=== PATIENT | female | born 1975 | race African-American/Black ===

== ENCOUNTER 2017-10-13 15:14 | Outpatient (CLI) | payer BC | END 2017-10-13 15:15 | disposition home or self-care (01) | LOC: BICMAMMO 15:14 | PROVIDERS: ATTEND Nurse Practitioner Family | DX: Z12.31 Encounter for screening mammogram for malignant neoplasm of breast (principal); N63.10 Unspecified lump in the right breast, unspecified quadrant; N63.20 Unspecified lump in the left breast, unspecified quadrant | CPT/HCPCS: 77063; 77067 ==

== ENCOUNTER 2018-01-04 15:18 | Emergency (ER) | payer BC ==
[2018-01-04 16:22] LABS: #Basophils 0.1 thou/uL (0.0-0.2); #Eosinphils 0.1 thou/uL (0.0-0.7); #Lymphocytes 2.2 thou/uL (1.20-3.40); #Monocytes 0.3 thou/uL (0.11-0.59); #Neutrophils 3.4 thou/uL (1.40-6.50); %Eosinophils 2.1 % (0.0-10.0); %Monocytes 4.3 % (0.0-10.0); %Neutrophils 56.6 % (42.0-75.0); Hemoglobin 10.1 g/dL (12.0-16.0); Mean Corpuscular HGB CONC 31.7 g/dL (32.0-36.0); Mean Corpuscular Hemoglobin 24.6 pg (27.0-31.0); Mean Corpuscular Volume 77.6 fL (78.0-98.0); Mean Platelet Volume 8.2 fL (7.4-10.4); Platelet Count 406 thou/uL (130-400); RBC Distribution Width 15.7 % (11.5-14.5); Red Blood Cell (RBC) Count 4.13 mill/uL (4.20-5.40)
[2018-01-04 16:43] LABS: ALT (SGPT) 13 U/L (8-55); AST (SGOT) 18 U/L (5-34); Albumin 4.1 g/dL (3.5-5.0); Alkaline Phosphatase 91 U/L (40-150); Anion Gap 15 mmol/L (10-20); BUN (Urea Nitrogen) 12 mg/dL (7.0-18.7); Bilirubin, Total 0.4 mg/dL (0.2-1.2); Calc. Creatinine Clearance 0 mL/min (70-130); Calcium 8.9 mg/dL (7.8-10.44); Carbon Dioxide 21 mmol/L (22-29); Chloride 106 mmol/L (98-107); Estimated GFR-MDRD Greater than 90; Glucose 91 mg/dL (70-105); Potassium 3.3 mmol/L (3.5-5.1); Protein, Total 8.1 g/dL (6.0-8.3); Sodium 139 mmol/L (136-145)
[2018-01-04 16:48] LABS: CKMB 2.1 ng/mL (0-6.6); Troponin I Less than 0.010 ng/mL (< 0.028)
--- NOTE | 2018-01-04 17:04 | CT ---
NONCONTRAST CT HEAD: Date: 01/04/18 HISTORY: Syncope and collapse. Headache. COMPARISON: None available. FINDINGS: There is no evidence of a hemorrhage, acute infarction, mass effect, or midline shift. Ventricular sy stem is normal in size, shape, and position. Visualized paranasal sinuses and mastoid air cells are c lear. No depressed calvarial fracture is seen. IMPRESSION: No acute intracranial abnormality is demonstrated. POS: [facility]
[2018-01-04 18:08] LABS: Bilirubin Negative (Negative); Blood, Urine Negative (Negative); Clarity CLEAR (Clear); Glucose, Urine (Dipstick) Negative (Negative); Leukocyte Trace (Negative); Nitrite Negative (Negative); Protein, Urine (Dipstick) Negative (Neg-Trace); Specific Gravity, Urine 1.009 (1.002-1.036); Urobilinogen 0.2 mg/dL (0.2-1.0); pH, Urine 6.5 (5.0-9.0)
[2018-01-04 18:09] LABS: Pregnancy Test - Urine (BHCG) Negative (Negative); Pregu Control Background? CLEAR/WHITE (CLR/WHITE); Pregu Control Bar Appear? YES (CONTROL BAR); Specific Gravity 1.009 (1.002-1.036)
[2018-01-04 18:11] LABS: Bacteria/HPF None Seen HPF (None Seen); Hyaline Casts/LPF 0-3 HYALINE CAST LPF (0-3 Hyaline); RBC/HPF 0-3 HPF (0-3); Squamous Epithelial 0-3 HPF (0-3); WBC/HPF 0-3 HPF (0-3)
--- NOTE | 2018-01-04 18:36 | RAD ---
AP VIEW CHEST: 01/04/2018 HISTORY: Chest pain. TECHNIQUE: AP view chest is obtained. FINDINGS: AP view chest demonstrates ectasia of the aorta. Pulmonary vascular congestion is seen. No evidence of effusions, pneumonia, or pneumothorax is seen. IMPRESSION: Pulmonary vascular congestion; otherwise, unremarkable anterior-posterior view chest. POS: [facility]
[2018-01-04] MEDS ORDERED: Aspirin 81 mg Enteric Coated Tablet ONE (18:39)
[2018-01-04] MEDS ORDERED: hydrALAZINE 20 MG/ML VIAL ONE (18:39)
== END 2018-01-04 20:35 | disposition home or self-care (01) ==
LOC: ERS 15:18
DX: R55 Syncope and collapse (principal); I10 Essential (primary) hypertension; Z79.899 Other long term (current) drug therapy
CPT/HCPCS: 36415; 70450; 71045; 80053; 81003; 81015; 81025; 82553; 84484; 85025; 93005; 96374; J0360

== ENCOUNTER 2018-08-09 08:39 | Emergency (ER) | payer BC | END 2018-08-09 09:38 | disposition home or self-care (01) | LOC: ERS 08:39 | DX: S39.012A Strain of muscle, fascia and tendon of lower back, initial encounter (principal); I10 Essential (primary) hypertension; Z79.899 Other long term (current) drug therapy; X50.1XXA Overexertion from prolonged static or awkward postures, initial encounter | CPT/HCPCS: 99283 ==

== ENCOUNTER 2018-12-27 10:42 | Emergency (ER) | payer BC | END 2018-12-27 13:33 | disposition left against medical advice (07) | LOC: ERS 10:42 | DX: Z53.21 Procedure and treatment not carried out due to patient leaving prior to being seen by health care provider (principal) ==

== ENCOUNTER 2019-07-26 08:53 | Outpatient (CLI) | payer BC ==
--- NOTE | 2019-07-26 11:54 | ULT ---
RIGHT BREAST ULTRASOUND: Date: 07/26/2019 HISTORY: Palpable abnormality right breast. COMPARISON: Today's mammogram, as well as previous mammogram studies of 10/13/2017 and 02/19/2012. FINDINGS: Real-time imaging of the area of concern shows a kidney mcfadden shaped nodule with central fatty hilum, very characteristic for an intramammary lode. This is located at the 10 o'clock position, 7.0 cm from the nipple. This corresponds to the mammographic finding and this is a stable mammographic finding. No other abnormalities noted in this area. IMPRESSION: BI-RADS Category 2 - Benign findings.
--- NOTE | 2019-07-26 12:23 | MMO ---
Bilateral MAMMO Bilat Diag [facility]. CLINICAL HISTORY: Patient is 44 years old and is seen for diagnostic exam and lump or thickening in the upper-outer region of the right breast. The patient has the following family history of breast cancer: maternal aunt, malignant (generic). The patient has no personal history of cancer. The patient has a history of left Excisional Biopsy at age 17 - benign - Lump removed. VIEWS: The views performed were: bilateral mediolateral with tomosynthesis; bilateral craniocaudal with tomosynthesis; bilateral mediolateral oblique with tomosynthesis; and left craniocaudal. FILMS COMPARED: The present examination has been compared to prior imaging studies performed at [facility] on 02/19/2012, 10/13/2017 and 07/26/2019. This study has been interpreted with the assistance of computer-aided detection. MAMMOGRAM FINDINGS: There are scattered fibroglandular densities. There are intramammary lymph nodes seen in both breasts. There are no suspicious masses, suspicious calcifications, or new areas of architectural distortion. IMPRESSION: THERE IS NO MAMMOGRAPHIC EVIDENCE OF MALIGNANCY. A ROUTINE FOLLOW-UP MAMMOGRAM IN 1 YEAR IS RECOMMENDED. THE RESULTS OF THIS EXAM WERE SENT TO THE PATIENT. ACR BI-RADS Category 2 - Benign finding MAMMOGRAPHY NOTE: 1. A negative mammogram report should not delay a biopsy if a dominant of clinically suspicious mass is present. 2. Approximately 10% to 15% of breast cancers are not detected by mammography. 3. Adenosis and dense breasts may obscure an underlying neoplasm. Reported by: VELVET PATEL MD Electonically Signed: [id number]
== END 2019-07-26 08:54 | disposition home or self-care (01) ==
LOC: BICMAMMO 08:53
PROVIDERS: ATTEND Nurse Practitioner Family
DX: N63.11 Unspecified lump in the right breast, upper outer quadrant (principal)
CPT/HCPCS: 77066; G0279

== ENCOUNTER 2020-12-06 11:29 | Emergency (ER) | payer BC ==
[~2020-12-06 11:29] MED LIST: Iopamidol-370 76% 500 ML 1 ML ONE
[2020-12-06 12:20] LABS: Hemoglobin 13.5 g/dL (12.0-16.0); Mean Corpuscular HGB CONC 33.6 g/dL (32.0-36.0); Mean Corpuscular Volume 83.5 fL (78.0-98.0); Mean Platelet Volume 7.9 fL (7.4-10.4); Platelet Count 336 thou/uL (130-400); Red Blood Cell (RBC) Count 4.83 mill/uL (4.20-5.40); White Blood Cell (WBC) Count 5.5 thou/uL (4.8-10.8)
[2020-12-06 12:25] LABS: Band 14 % (5-11); Eosinophils 1 % (0-10); Lymphocytes 27 % (21-51); MDiff Complete? YES; Monocytes 6 % (0-10); Neutrophil 52 % (42-75); Platelet Morphology Comment Appears Adequate; RBC Morphology Normal
[2020-12-06 12:30] LABS: Anion Gap 14 mmol/L (10-20); BUN (Urea Nitrogen) 15 mg/dL (7.0-18.7); Bilirubin, Total 0.4 mg/dL (0.2-1.2); Calc. Creatinine Clearance 0 mL/min (70-130); Calcium 9.6 mg/dL (7.8-10.44); Carbon Dioxide 24 mmol/L (22-29); Chloride 103 mmol/L (98-107); Glucose 128 mg/dL (70-105); Potassium 3.5 mmol/L (3.5-5.1); Protein, Total 8.5 g/dL (6.0-8.3); Sodium 137 mmol/L (136-145)
[2020-12-06 12:31] LABS: ALT (SGPT) 14 U/L (8-55); AST (SGOT) 17 U/L (5-34); Albumin 4.1 g/dL (3.5-5.0); Alkaline Phosphatase 88 U/L (40-110); Globulin 4.4 g/dL (2.4-3.5); Lipase 16 U/L (8-78)
[2020-12-06 13:49] LABS: Bilirubin Negative (Negative); Blood, Urine Negative (Negative); Clarity Turbid (Clear); Glucose, Urine (Dipstick) Normal (Negative); Ketone, Urine Negative (Negative); Leukocyte Negative Leu/uL (Negative); Nitrite Negative (Negative); Protein, Urine (Dipstick) 50 mg/dL (Neg-Trace); Specific Gravity, Urine 1.016 (1.002-1.036); Urobilinogen Normal mg/dL (Less than 2)
[2020-12-06 13:55] LABS: RBC/HPF 0-3 HPF (0-3)
[2020-12-06 13:56] LABS: Bacteria/HPF 2+ HPF (None Seen); WBC/HPF 0-3 HPF (0-3)
[2020-12-06 15:32] LABS: BHCG - Serum Negative (NEGATIVE); Pregs Control Background? CLEAR/WHITE (CLR/WHITE); Pregs Control Bar Appear? YES (CONTROL BAR)
[2020-12-06] MEDS ORDERED: Ondansetron PF 4 MG/2 ML Vial ONE (16:11)
[2020-12-06] MEDS ORDERED: Losartan 25 MG TAB PO SCH (16:30)
== END 2020-12-06 20:25 | disposition home or self-care (01) ==
LOC: ERS 11:29
DX: K57.32 Diverticulitis of large intestine without perforation or abscess without bleeding (principal); I10 Essential (primary) hypertension; Z79.899 Other long term (current) drug therapy
CPT/HCPCS: 36415; 74177; 80053; 81003; 81015; 83690; 84703; 85025; 94760; 96372; 96374; J0500; J2405; Q9967

== ENCOUNTER 2024-11-25 09:57 | Inpatient (IN) | payer BC, OTHER, SELFPAY ==
[2024-11-25 10:21] LABS: #Basophils 0.03 10x3/uL (0.0-0.2); #Eosinophils 0.09 10x3/uL (0.0-0.7); #Monocytes 0.36 10x3/uL (0.11-0.59); #Neutrophils 2.65 10x3/uL (1.40-6.50); %Basophils 0.6 % (0.0-1.0); %Eosinophils 1.8 % (0.0-10.0); %Lymphocytes 37.1 % (21.0-51.0); %Monocytes 7.2 % (0.0-10.0); %Neutrophils 53.1 % (42.0-75.0); Hematocrit 37.7 % (36.0-47.0); Hemoglobin 12.5 g/dL (12.0-16.0); Mean Corpuscular Hemoglobin 27.7 pg (27.0-31.0); Mean Corpuscular Volume 83.6 fL (78.0-98.0); Platelet Count 246 10x3/uL (130-400); Red Blood Cell (RBC) Count 4.51 mill/uL (4.20-5.40); White Blood Cell (WBC) Count 4.99 10x3/uL (4.8-10.8)
[2024-11-25] MEDS ORDERED: niCARdipine 25 MG/10 ML SDV ONE (10:21)
[2024-11-25 10:36] LABS: INR-International Normal Ratio 1.1; PTT 27.0 sec (22.9-36.1); Prothrombin Time 14.2 sec (12.0-14.7)
[2024-11-25 10:43] LABS: Troponin I Less than 0.010 ng/mL (< 0.028)
[2024-11-25 10:45] LABS: Lipase 14 U/L (8-78)
[2024-11-25 10:48] LABS: Acetaminophen Less than 10 mcg/mL (Less than 10); Salicylate Less than 8.0 mg/dL (Less than 8.0)
[2024-11-25 10:51] LABS: ALT (SGPT) 9 U/L (Less than 34); AST (SGOT) 29 U/L (11-34); Albumin 3.7 g/dL (3.1-4.5); Alkaline Phosphatase 85 U/L (40-110); Anion Gap 13 mmol/L (10-20); BUN (Urea Nitrogen) 13 mg/dL (7.0-18.7); Bilirubin, Total 0.6 mg/dL (0.3-1.2); Calc. Creatinine Clearance 0 mL/min (70-130); Calcium 8.8 mg/dL (7.8-10.44); Carbon Dioxide 22 mmol/L (22-29); Chloride 108 mmol/L (98-107); Globulin 4.6 g/dL (2.4-3.5); Glucose 96 mg/dL (70-105); Potassium 3.8 mmol/L (3.5-5.1); Sodium 139 mmol/L (136-145)
[2024-11-25] MEDS ORDERED: Iopamidol-370 76% 500 ML MDV (1 ML CHARGE) ONE (12:17)
[2024-11-25] MEDS ORDERED: Ondansetron PF 4 MG/2 ML Vial IVP PRN (12:26)
[2024-11-25] MEDS ORDERED: niCARdipine 25 MG in Sodium Chloride 0.9% 250 ML 250 ML IVPB SCH (12:30)
[2024-11-25 13:34] LABS: Bacteria/HPF None Seen HPF (None Seen); CAUTI Indications for Culture Alt mental st,lethar; Glucose, Urine (Dipstick) Normal (Negative); Leukocyte Negative Leu/uL (Negative); Protein, Urine (Dipstick) Negative (Neg-Trace); RBC/HPF 0-3 HPF (0-3); Specific Gravity, Urine 1.027 (1.002-1.036); WBC/HPF 0-3 HPF (0-3)
[2024-11-25 13:36] LABS: Urine Culture Reflex No No
[2024-11-25 13:39] LABS: Cocaine Metabolite Screen Negative (Negative); THC/Cannabinoid Screen PRELIM POSITIVE (Negative); Tricyclic Screen Negative (Negative)
[2024-11-25 14:02] LABS: BHCG - Serum Negative (NEGATIVE); Pregs Control Background? CLEAR/WHITE (CLR/WHITE); Pregs Control Bar Appear? YES (CONTROL BAR)
[2024-11-25 15:10] LABS: Troponin I 0.025 ng/mL (< 0.028)
[2024-11-25] MEDS: Pantoprazole 40 MG VIAL IVP SCH (15:10)
[2024-11-25] MEDS: levETIRAcetam 500 MG (5 mL) VIAL SLOW IVP SCH ×2 (15:10→20:39)
[2024-11-25] MEDS: niCARdipine 25 MG in Sodium Chloride 0.9% 250 ML 250 ML IVPB SCH (15:51)
[2024-11-25] MEDS: Carvedilol 6.25 MG TAB PO SCH (15:52)
[2024-11-25 15:56] VITALS: BMI 39.4
[2024-11-25] MEDS ORDERED: Famotidine/PF 20 mg/2ml Vial SLOW IVP SCH (21:00)
[2024-11-25 21:28] LABS: Troponin I 0.050 ng/mL (< 0.028)
[2024-11-26] MEDS: Acetaminophen 325 MG TAB PO PRN (00:56)
[2024-11-26 05:49] LABS: ALT (SGPT) 9 U/L (Less than 34); AST (SGOT) 15 U/L (11-34); Albumin 3.6 g/dL (3.1-4.5); Alkaline Phosphatase 87 U/L (40-110); Anion Gap 13 mmol/L (10-20); BUN (Urea Nitrogen) 8 mg/dL (7.0-18.7); Bilirubin, Total 0.7 mg/dL (0.3-1.2); Calc. Creatinine Clearance 182 mL/min (70-130); Calcium 8.6 mg/dL (7.8-10.44); Carbon Dioxide 21 mmol/L (22-29); Cardiac Risk 4.1 (Less than 4.5); Chloride 105 mmol/L (98-107); Cholesterol 169 mg/dl (< 200 Desired); Globulin 4.5 g/dL (2.4-3.5); Glucose 100 mg/dL (70-105); HDL Cholesterol 41 mg/dL (>60 Neg Risk); LDL Cholesterol, Calculated 103 mg/dL; Potassium 2.9 mmol/L (3.5-5.1); Sodium 136 mmol/L (136-145); Triglycerides 123 mg/dL (Less than 150)
[2024-11-26] MEDS ORDERED: Potassium Chloride 20 MEQ in Premix 1 BAG IVPB SCH (08:00)
[2024-11-26 08:28] VITALS: BMI 39.4
[2024-11-26] MEDS: Carvedilol 6.25 MG TAB PO SCH (08:37)
[2024-11-26] MEDS: Pantoprazole 40 MG VIAL IVP SCH (08:51)
[2024-11-26] MEDS: hydrALAZINE 20 MG/ML VIAL SLOW IVP PRN (10:26)
[2024-11-26] MEDS: NIFEdipine XL 30 MG ER.TAB PO SCH (13:23)
[2024-11-27 05:41] LABS: Hematocrit 39.8 % (36.0-47.0); Hemoglobin 13.0 g/dL (12.0-16.0); Mean Corpuscular Hemoglobin 27.8 pg (27.0-31.0); Mean Corpuscular Volume 85.2 fL (78.0-98.0); Platelet Count 315 10x3/uL (130-400); Red Blood Cell (RBC) Count 4.67 mill/uL (4.20-5.40); White Blood Cell (WBC) Count 6.74 10x3/uL (4.8-10.8)
[2024-11-27 05:48] LABS: Anion Gap 13 mmol/L (10-20); BUN (Urea Nitrogen) 9 mg/dL (7.0-18.7); Calc. Creatinine Clearance 150 mL/min (70-130); Calcium 8.7 mg/dL (7.8-10.44); Carbon Dioxide 23 mmol/L (22-29); Chloride 108 mmol/L (98-107); Glucose 100 mg/dL (70-105); Magnesium 1.8 mg/dL (1.6-2.6); Potassium 3.6 mmol/L (3.5-5.1); Sodium 140 mmol/L (136-145)
[2024-11-27] MEDS: NIFEdipine XL 30 MG ER.TAB PO SCH (09:09)
[2024-11-27] MEDS: Magnesium 2 GM/50 ML(in water) 2 GM in Premix 1 BAG IVPB SCH (09:10)
[2024-11-28] MEDS: levETIRAcetam 500 MG TAB PO SCH (08:17)
[2024-11-28] MEDS: Carvedilol 6.25 MG TAB PO SCH (08:17)
[2024-11-29] MEDS: NIFEdipine XL 30 MG ER.TAB PO SCH (07:40)
[2024-11-29] MEDS: Pantoprazole 40 MG DR.TAB PO SCH (07:41)
[2024-12-01 11:32] VITALS: TEMP 98.4
[2024-12-01 12:31] VITALS: BP 112/69
== END 2024-12-01 14:10 | DRG 65 ==
LOC: ERS 09:57 → ERHOLD 11:54 → CCU 13:58 → 2SE 11-27 11:34
PROVIDERS: ADMIT Internal Medicine; ATTEND Internal Medicine
DX: I61.0 Nontraumatic intracerebral hemorrhage in hemisphere, subcortical (principal); G81.91 Hemiplegia, unspecified affecting right dominant side; I16.1 Hypertensive emergency; I67.4 Hypertensive encephalopathy; R47.01 Aphasia; R47.81 Slurred speech; I10 Essential (primary) hypertension; Z98.890 Other specified postprocedural states; Z90.49 Acquired absence of other specified parts of digestive tract; F12.90 Cannabis use, unspecified, uncomplicated; Z68.39 Body mass index [BMI] 39.0-39.9, adult; E87.6 Hypokalemia; E78.5 Hyperlipidemia, unspecified; Z79.899 Other long term (current) drug therapy; R29.705 NIHSS score 5; Z91.148 Patient's other noncompliance with medication regimen for other reason; E66.01 Morbid (severe) obesity due to excess calories; Z71.51 Drug abuse counseling and surveillance of drug abuser; R79.89 Other specified abnormal findings of blood chemistry; R13.10 Dysphagia, unspecified; I61.8 Other nontraumatic intracerebral hemorrhage
CPT/HCPCS: 36415; 36416; 70450; 70496; 70498; 80048; 80053; 80061; 80306; 80307; 81001; 83036; 83690; 83735; 84443; 84484; 84703; 85025; 85027; 85610; 85730; 93005; 93306; 96374; 96375; J0360; J1953; J2060; J2470; J3475; J7050; Q9967